=== PATIENT | female | born 1980 | race Caucasian/White ===

== ENCOUNTER 2021-04-05 09:28 | Outpatient (CLI) | payer BC | END 2021-04-05 20:54 | disposition home or self-care (01) | LOC: SMI 09:28 | PROVIDERS: ATTEND Specialist | DX: D25.1 Intramural leiomyoma of uterus (principal); N88.8 Other specified noninflammatory disorders of cervix uteri; R10.2 Pelvic and perineal pain | CPT/HCPCS: 72195 ==

== ENCOUNTER 2021-04-18 08:54 | Inpatient (IN) | payer BC, SELFPAY ==
[~2021-04-18] VITALS: Ht 154.9 cm; Wt 59.0 kg
[2021-04-18 09:35] LABS: HCG,QUAL RESULT NEGATIVE (NEGATIVE)
[2021-04-18] MEDS ORDERED: ISOFLURANE 15 MIN GAS INH ONE (10:50)
[2021-04-18] MEDS ORDERED: SUCCINYLCHOLINE CHLORIDE 20 MG/ML(QUELICIN) IVP ONE (10:50)
[2021-04-18] MEDS ORDERED: BUPIVACAINE /PF 0.5% 30 ML VIAL INJ ONE (10:50)
[2021-04-18] MEDS ORDERED: SUGAMMADEX SODIUM 200 MG/2 ML VIAL IV ONE (10:50)
[2021-04-18] MEDS ORDERED: ACETAMINOPHEN I.V. 1000 MG /100 ML IVPB PREMIX IV ONE (10:50)
[2021-04-18] MEDS ORDERED: PROPOFOL 200MG/ 20ML VIAL (DIPRIVAN) IV ONE (10:50)
[2021-04-18] MEDS ORDERED: ROPIVACAINE HCL/PF 0.2% EPIDURAL 200 ML PLAST..BAG EP ONE (10:50)
[2021-04-18] MEDS ORDERED: BUPIVACAINE /EPINEPHRINE/PF 0.5% 30 ML VIAL INJ ONE (10:50)
[2021-04-18] MEDS ORDERED: WATER FOR IRRIGATION,STERILE 1,000 ML IRRIG.SOLN IR ONE (10:50)
[2021-04-18] MEDS ORDERED: DEXAMETHASONE SOD PHOSPHATE 4 MG/ML VIAL IVP ONE (10:50)
[2021-04-18] MEDS ORDERED: KETOROLAC TROMETHAMINE 30 MG VIAL IVP ONE (10:50)
[2021-04-18] MEDS ORDERED: ONDANSETRON HCL 4 MG/2 ML VIAL IVP ONE (10:50)
[2021-04-18] MEDS ORDERED: fentaNYL CITRATE/PF 100 MCG/2 ML AMP IVP ONE (10:50)
[2021-04-18] MEDS ORDERED: HYDROmorphone 2 MG/ML VIAL IVP ONE (10:50)
[2021-04-18] MEDS ORDERED: LR 1,000 ML IV.SOLN IV ONE (10:50)
[2021-04-18] MEDS ORDERED: ROCURONIUM BROMIDE 10 MG/ML (ZEMURON) IV ONE (10:50)
[2021-04-18] MEDS ORDERED: NS IRRIG SOLN 1000 ML IR ONE (10:50)
[2021-04-18] MEDS ORDERED: ONDANSETRON HCL 4 MG/2 ML VIAL IVP PRN ×2 (11:45→22:15)
[2021-04-18] MEDS ORDERED: HYDROmorphone 2 MG/ML VIAL IVP PRN (11:45)
[2021-04-18] MEDS ORDERED: HYDROmorphone 1 MG/ML INJ. CARTRIDGE IVP PRN ×2 (11:45)
[2021-04-18] MEDS ORDERED: ACETAMINOPHEN I.V. 1000 MG 100 ML IV ONE (13:28)
[2021-04-18] MEDS ORDERED: HYDROcodone/ACETAMIN 5-325 MG TAB (NORCO/ VICODIN) PO PRN (14:00)
[2021-04-18] MEDS ORDERED: OXYCODONE/ACETAMINOPHEN 5-325 TABLET PO PRN ×3 (14:00)
[2021-04-18] MEDS ORDERED: CEFAZOLIN 1 GM IVPB PREMIX 50 ML IV SCH (14:00)
[2021-04-18] MEDS ORDERED: FLUT1DIS IH (14:10)
[2021-04-18] MEDS: HYDROmorphone 1 MG/ML INJ. CARTRIDGE ONE ×2 (14:15→14:30)
[2021-04-18] MEDS ORDERED: ALBU8.5H8 INH (14:35)
[2021-04-18] MEDS ORDERED: ONDANSETRON HCL 4 MG/2 ML VIAL ONE (14:40)
[2021-04-18] MEDS: LR 1,000 ML IV SCH ×2 (16:11→22:52)
[2021-04-18 16:26] VITALS: BP_SYST 118
--- NOTE | 2021-04-18 17:10 | NUR ---
Note Pt arrived to floor at 1600 via bed, accompanied by her mother. Pt is on room air with O2 sats at 94%. Pt has 4 lap sites with steri- strips, which are CDI. Pt has Molina catheter intact and draining. Pt has Q-pump at 10cc/hr. IV in right wrist intact and patent infusing IVF's well. was oriented to room and nursing routines and procedures. Call light within reach all shift. Pt resting at this time. Admission assessment completed.
--- NOTE | 2021-04-18 18:24 | NUR ---
Note Pt resting in bed, denies any needs at this time. Pt was checked on q1' and PRN all shift for needs and care. Pt's bed in low position and bed alarm on. Call light within reach.
[2021-04-18 19:00] VITALS: BP_SYST 115
[2021-04-18 20:00] VITALS: BP_SYST 115
[2021-04-18] MEDS ORDERED: SENNOSIDES/DOCUSATE SODIUM 1 TAB TABLET(SENOKOT-S) PO PRN (21:00)
[2021-04-18] MEDS ORDERED: TEMAZEPAM 15 MG CAPSULE PO PRN (21:00)
[2021-04-18] MEDS: CEFAZOLIN 1 GM IVPB PREMIX 50 ML IV SCH (22:00)
[2021-04-18] MEDS ORDERED: CEFAZOLIN 1 GM IVPB PREMIX 50 ML IV ONE (22:30)
[2021-04-19] MEDS: KETOROLAC TROMETHAMINE 30 MG VIAL IVP SCH ×6 (00:32→23:27)
--- NOTE | 2021-04-19 03:48 | NUR ---
PT HAD EPISODE OF NAUSEA&VOMITING THIS SHIFT. CALLED DR. KAUR EARLIER AND RECEIVED ORDER FOR ZOFRAN. SEE EMAR. MEDICATION GIVEN AND FOUND EFFECTIVE W/O ANY ADVERSE S/E.
[2021-04-19] MEDS: OXYCODONE/ACETAMINOPHEN 5-325 TABLET PO PRN ×3 (04:12→16:55)
[2021-04-19] MEDS: LR 1,000 ML IV SCH ×2 (06:22→14:00)
[2021-04-19] MEDS: CEFAZOLIN 1 GM IVPB PREMIX 50 ML IV SCH (06:57)
[2021-04-19 09:36] VITALS: BP_SYST 109
--- NOTE | 2021-04-19 09:52 | NUR ---
Nutrition Update Hever Scale 14 noted. Pt admitted for pelvic and perineal pain. Diet: clear liquid BMI: 24.6 kg/m2 RD to follow per nutrition care standards.
[2021-04-19 11:28] VITALS: BP_SYST 109
--- NOTE | 2021-04-19 15:21 | NUR ---
ATTENDING MD DR Dayana KUAR WAS CALLED, RE: TO ADVANCE THE DIET.
[2021-04-19 15:37] VITALS: BP_SYST 104
--- NOTE | 2021-04-19 19:00 | NUR ---
PATIENT STARTING TO AMBULATE UP IN CHAIR ONCE AND AMBULATED OUT OF ROOM TWICE. HOROWITZ DISCONTINED PER ORDERS. PATIENT CONTINES TO REQUIRE PAIN MED'S IN ADDITION TO Q 6 HOUR TORADOL. INSTRUTED IN IS
--- NOTE | 2021-04-19 19:45 | NUR ---
ON Q PUMP IN LEFT ABDOMEN IS INTACT AND RUNNING AT 10ML/HR. PT DENIES NUMBNESS OR TINGLING.
[2021-04-19 20:00] VITALS: BP_SYST 107
--- NOTE | 2021-04-19 23:30 | NUR ---
PT AMBULATED TO THE BATHROOM WITH ASSIST AND SHE VOIDED LARGE AMOUNT OF CLEAR YELLOWISH URINE IN THE TOILET.
[2021-04-20 02:08] VITALS: BP_SYST 101
[2021-04-20] MEDS: KETOROLAC TROMETHAMINE 30 MG VIAL IVP SCH ×3 (05:46→18:55)
[2021-04-20 08:20] VITALS: BP_SYST 96
--- NOTE | 2021-04-20 08:20 | NUR ---
Patient resting comfortably in bed with no distress noted at this time. Patient stable.
[2021-04-20] MEDS: OXYCODONE/ACETAMINOPHEN 5-325 TABLET PO PRN (09:59)
--- NOTE | 2021-04-20 10:00 | NUR ---
Patient medicated for 5/10 abdominal pain. Patient stable at this time.
--- NOTE | 2021-04-20 11:00 | NUR ---
Patient resting comfortably in bed at this time; pain has subsided to 0/10. Patient stable.
[2021-04-20 11:30] VITALS: BP_SYST 112
--- NOTE | 2021-04-20 12:55 | NUR ---
Patient sitting on side of bed at this time. Scheduled IVP medication given for pain. Patient stable.
[2021-04-20 15:43] VITALS: BP_SYST 119
--- NOTE | 2021-04-20 16:45 | NUR ---
Patient ambulating in room with no complaint of pain at this time. Patient stable.
--- NOTE | 2021-04-20 18:55 | NUR ---
Scheduled IVP medication given. Patient stable throughout shift.
[2021-04-20 20:00] VITALS: BP_SYST 98
--- NOTE | 2021-04-20 20:00 | NUR ---
INITIAL NOTES: PT IS AWAKE, NOT IN ANY ACUTE DISTRESS ; ASSESSMENT DONE ; NOTICED Q PUMP IS ON AT 10 CC /HR , BUT NO MEDICATION NOTICED IN IT , PER PT , DR TOLD HER THAT HE WILL COME AND DC IT IN THE MORNING . PT HAS I.S AT BEDSIDE , ENCOURAGED PT TO DO IT EVERY HR X10 WHILE AWAKE , PT IS USING IT UPTO 1250 .
--- NOTE | 2021-04-20 23:25 | NUR ---
VAGINAL BLEEDING: PT CALLED AND STATED THAT SHE HAS SOME VAGINAL BLEEDING , PER SNA , SMALL AMOUNT ON THE PAD NOTICED ; WILL MONITOR FOR BLEEDING ,
[2021-04-21] MEDS: KETOROLAC TROMETHAMINE 30 MG VIAL IVP SCH ×2 (00:03→06:27)
[2021-04-21 01:31] VITALS: BP_SYST 107
--- NOTE | 2021-04-21 06:34 | NUR ---
RN NOTES; PT IS AWAKE , DUE MEDS GIVEN , PT IS COMFORTABLE ; NOT IN ANY ACUTE DISTRESS; PT STATED SHE HAS ONLY MILD BLEEDING LIKE WHEN SHE GETS HER PERIODS . WILL MONITOR PT .
--- NOTE | 2021-04-21 07:35 | NUR ---
CLOSING NOTES: REPORT GIVEN TO RN , ALL NEEDS ATTENDED ; PT IS SLEEPING ON AND OFF . NOTIFIED RN ABOUT THE Q PUMP THAT IS EMPTY .
--- NOTE | 2021-04-21 08:00 | NUR ---
seen patient walking from the bathroom with no pain , not in distress. IV i ntact. Q pump intact and empty. stated Dr sparks will come today to discharge her.
[2021-04-21 11:59] VITALS: BP_SYST 109
--- NOTE | 2021-04-21 12:20 | NUR ---
patient said Dr salinas came here and removed the Q pump. cleanse with NS dry and covered with band aid. no redness noted. surgical incision at lower hypogastruim clean and dry . noted 1 stitch at the right side of the incision. ambulatory. no fever.
--- NOTE | 2021-04-21 12:28 | NUR ---
discharge today .instructed to call Dr salinas office on friday for follow up check up. can have shower, on regular diet and pain meds as ordered. verbally understand as demonstrated by repeating it.
[2021-04-21 14:55] VITALS: BP_SYST 103
--- NOTE | 2021-04-21 16:03 | NUR ---
noted vaginal bloody discharge small amount comes out every time uses bathroom. instructed to seek hospital if continous bleeding occur. verbalize understanding. went out via wheelchair @ 1600 accompanied by mother.
== END 2021-04-21 16:05 | disposition home or self-care (01) | DRG 743 ==
LOC: SDS 08:54 → SMU 08:56 → EDUNIT# 10:00 → SDS 16:00 → SMU 16:07 → SDS 04-21 16:05
PROVIDERS: ADMIT Specialist; ATTEND Specialist
PROC: 0UB94ZZ Excision of Uterus, Percutaneous Endoscopic Approach (ICD-10-PCS; 2021-04-18)
PROC: 0UB90ZZ Excision of Uterus, Open Approach (ICD-10-PCS; 2021-04-18)
PROC: 0JH80WZ Insertion of Totally Implantable Vascular Access Device into Abdomen Subcutaneous Tissue and Fascia, Open Approach (ICD-10-PCS; 2021-04-18)
PROC: 0U5B0ZZ Destruction of Endometrium, Open Approach (ICD-10-PCS; 2021-04-18)
PROC: 8E0W4CZ Robotic Assisted Procedure of Trunk Region, Percutaneous Endoscopic Approach (ICD-10-PCS; principal; 2021-04-18 10:50)
DX: D25.2 Subserosal leiomyoma of uterus (principal); N83.209 Unspecified ovarian cyst, unspecified side; J45.909 Unspecified asthma, uncomplicated; N80.0 Endometriosis of uterus; N94.10 Unspecified dyspareunia; Z88.8 Allergy status to other drugs, medicaments and biological substances
CPT/HCPCS: 84703; 87081; 88305; C9399; E0190; J0131; J0330; J0690; J1100; J1170; J1885; J2405; J2704; J3010; J3490; J7120; U0003